=== PATIENT | female | born 1970 | race African-American/Black ===

== ENCOUNTER 2022-11-13 08:16 | Emergency (ER) | payer OTHER ==
[~2022-11-13] VITALS: Ht 160 cm; Wt 77.3 kg
[2022-11-13] MEDS ORDERED: IBUP-1492 PO ×2 (09:45→10:05)
[2022-11-13 10:10] VITALS: BP 140/78
== END 2022-11-13 10:36 | disposition home or self-care (01) ==
LOC: EMS 08:16
DX: M25.572 Pain in left ankle and joints of left foot (principal); F17.210 Nicotine dependence, cigarettes, uncomplicated; Z98.890 Other specified postprocedural states
CPT/HCPCS: 99283